=== PATIENT | female | born 1975 | race African-American/Black ===

== ENCOUNTER → 2018-10-11 | Outpatient (CLI) | payer BC ==
[~2018-10-11] MED LIST: MAGNESIUM ELEM300 MG PO; MILK THISTLE150 MG PO; MULTI VITAMINS1 TAB PO; PROFERRIN ES12 MG
== END ==
LOC: MC.RAD 10:45
DX: Z12.31 Encounter for screening mammogram for malignant neoplasm of breast (principal)

== ENCOUNTER → 2020-04-01 | Outpatient (CLI) | payer BC | LOC: MC.RAD 09:00 | DX: Z12.31 Encounter for screening mammogram for malignant neoplasm of breast (principal) ==

== ENCOUNTER → 2021-07-17 | Outpatient (CLI) | payer BC | LOC: MC.RAD 15:16 | DX: Z12.31 Encounter for screening mammogram for malignant neoplasm of breast (principal) ==

== ENCOUNTER → 2024-06-29 | Outpatient (CLI) | payer BC | LOC: MC.RAD 09:15 | DX: Z12.31 Encounter for screening mammogram for malignant neoplasm of breast (principal) ==